=== PATIENT | female | born 1975 | race Caucasian/White ===

== ENCOUNTER 2016-12-18 08:34 | Emergency (ER) | payer BC ==
[2016-12-18 08:44] VITALS: BP 134/83
--- NOTE | 2016-12-18 08:45 | EDM.PDOC ---
ED HPI GENERAL MEDICAL PROBLEM - General Chief Complaint: ENT Problem Stated Complaint: SORETHROAT Time Seen by Provider: 12/18/16 08:43 - History of Present Illness INITIAL COMMENTS - FREE TEXT/NARRATIVE: HISTORY AND PHYSICAL: History of present illness: Patient is a 41-year-old female presented concern of sore throat and requesting strep screening she has been exposed to a person at work with similar illness she denies fever chills nausea vomiting or other complaints Review of systems: As per history of present illness and below otherwise all systems reviewed and negative. Past medical history: As per history of present illness and as reviewed below otherwise noncontributory. Surgical history: As per history of present illness and as reviewed below otherwise noncontributory. Social history: No reported history of drug or alcohol abuse. Family history: As per history of present illness and as reviewed below otherwise noncontributory. Physical exam: HEENT: Atraumatic, normocephalic, pupils reactive, negative for conjunctival pallor or scleral icterus, mucous membranes moist, throat injected no peritonsillar fullness ovular deviation trismus hot potato voice or pustular exudate, neck supple, nontender, trachea midline. Lungs: Clear to auscultation, breath sounds equal bilaterally, chest nontender. Heart: S1S2, regular, negative for clicks, rubs, or JVD. Abdomen: Soft, nondistended, nontender. Negative for masses or hepatosplenomegaly. Negative for costovertebral tenderness. Pelvis: Stable nontender. Genitourinary: Deferred. Rectal: Deferred. Extremities: Atraumatic, negative for cords or calf pain. Neurovascular unremarkable. Neuro: Awake, alert, oriented. Cranial nerves II through XII unremarkable. Cerebellum unremarkable. Motor and sensory unremarkable throughout. Exam nonfocal. Diagnostics: Rapid strep Therapeutics: None Impression: #1 pharyngitis Definitive disposition and diagnosis as appropriate pending reevaluation and review of above. - Related Data Allergies Allergy/AdvReac Type Severity Reaction Status Date / Time Sulfa (Sulfonamide Allergy Airway Verified 12/18/16 08:41 Antibiotics) Tightness Home Meds: Home Meds . [No Known Home Meds] 12/18/16 [History] ED ROS GENERAL - Review of Systems Review Of Systems: ROS reveals no pertinent complaints other than HPI. ED EXAM, GENERAL - Physical Exam Exam: See Below (See dictation) Course - Vital Signs Last Recorded V/S: Last Vital Signs Temp 36.2 C 12/18/16 08:41 Pulse 102 H 12/18/16 08:41 Resp 18 12/18/16 08:41 BP 134/83 12/18/16 08:41 Pulse Ox 97 12/18/16 08:41 - Orders/Labs/Meds Orders: Active Orders 24 hr Category Date Time Status CULTURE STREP A CONFIRMATION [RM] Stat Lab 12/18/16 08:45 Results STREP SCRN A RAPID W CULT CONF [RM] Stat Lab 12/18/16 08:45 Results Departure - Departure Time of Disposition: 09:53 Disposition: Home, Self-Care 01 Condition: good Clinical Impression: Pharyngitis - Discharge Information Forms: ED Department Discharge Additional Instructions: The following information is given to patients seen in the emergency department who are being discharged to home. This information is to outline your options for follow-up care. We provide all patients seen in our emergency department with a follow-up referral. The need for follow-up, as well as the timing and circumstances, are variable depending upon the specifics of your emergency department visit. If you don't have a primary care physician on staff, we will provide you with a referral. We always advise you to contact your personal physician following an emergency department visit to inform them of the circumstance of the visit and for follow-up with them and/or the need for any referrals to a consulting specialist. The emergency department will also refer you to a specialist when appropriate. This referral assures that you have the opportunity for followup care with a specialist. All of these measure are taken in an effort to provide you with optimal care, which includes your followup. Under all circumstances we always encourage you to contact your private physician who remains a resource for coordinating your care. When calling for followup care, please make the office aware that this follow-up is from your recent emergency room visit. If for any reason you are refused follow-up, please contact the [facility] emergency department at and asked to speak to the emergency department charge nurse. Motrin/Tylenol as directed push fluids followup primary medical doctor one to 2 days return as needed as discussed - My Orders Last 24 Hours: My Active Orders 12/18/16 08:45 CULTURE STREP A CONFIRMATION [RM] Stat STREP SCRN A RAPID W CULT CONF [RM] Stat - Assessment/Plan Last 24 Hours: My Active Orders 12/18/16 08:45 CULTURE STREP A CONFIRMATION [RM] Stat STREP SCRN A RAPID W CULT CONF [RM] Stat
== END 2016-12-18 09:59 | disposition home or self-care (01) ==
LOC: MW.ED 08:34
DX: J02.9 Acute pharyngitis, unspecified (principal); Z88.2 Allergy status to sulfonamides
CPT/HCPCS: 87081; 87880; 99282; 99283

== ENCOUNTER 2018-04-09 14:43 | Emergency (ER) | payer SELFPAY ==
[2018-04-09] MEDS ORDERED: Lidocaine 2% Viscous Solution 15 ML Cup PO ONE (15:51)
[2018-04-09] MEDS ORDERED: Benzocaine 20% Topical Spray UD MUCMEM ONE (15:51)
--- NOTE | 2018-04-09 15:53 | EDM.PDOC ---
ED HPI GENERAL MEDICAL PROBLEM - General Chief Complaint: ENT Problem Stated Complaint: TOOTHACHE Time Seen by Provider: 04/09/18 14:52 Source of Information: Reports: Patient History Limitations: Reports: No Limitations - History of Present Illness INITIAL COMMENTS - FREE TEXT/NARRATIVE: HISTORY AND PHYSICAL: History of present illness: Patient is a 43-year-old female who presents to the emergency room today with complaints of left upper dental pain and swelling. She states in December of this year she had broken a tooth while eating [employer] toffee. Since that time she has had to be careful while chewing. She states over the past week she has noticed increased swelling and pain to the broken tooth. She denies any fever, chills, chest pain, shortness of breath or cough. Denies any GI or symptoms. Denies any headache, change in vision ear or throat pain. Review of systems: As per history of present illness and below otherwise all systems reviewed and negative. Past medical history: As per history of present illness and as reviewed below otherwise noncontributory. Surgical history: As per history of present illness and as reviewed below otherwise noncontributory. Social history: No reported history of drug or alcohol abuse. Family history: As per history of present illness and as reviewed below otherwise noncontributory. Physical exam: General: Well-developed and well-nourished 43-year-old female. Alert and oriented. Nontoxic appearing and in no acute distress. HEENT: Atraumatic, normocephalic, pupils equal and reactive bilaterally, negative for conjunctival pallor or scleral icterus, mucous membranes moist, tooth #13-14 appears decayed with a partial chip to the #14 tooth, no exposed nerve root. Erythema to gumline above stated teeth. Her throat clear, neck supple, nontender, trachea midline. No drooling or trismus noted. No meningeal signs Lungs: Clear to auscultation, breath sounds equal bilaterally, chest nontender. Heart: S1S2, regular rate and rhythm without overt murmur Abdomen: Soft, nondistended, nontender. Negative for masses or hepatosplenomegaly. Negative for costovertebral tenderness. Pelvis: Stable nontender. Genitourinary: Deferred. Rectal: Deferred. Skin: Intact, warm, dry. No lesions or rashes noted. Extremities: Atraumatic, negative for cords or calf pain. Neurovascular unremarkable. Neuro: Awake, alert, oriented. Cranial nerves II through XII unremarkable. Cerebellum unremarkable. Motor and sensory unremarkable throughout. Exam nonfocal. Notes: Discussed with patient that she does need to follow up with the dentist for definitive care. We discussed in great length the medications that are any be prescribed and how to take them.She voices understanding and is agreeable to plan of care. She denies any further questions or concerns at this time. Diagnostics: None Therapeutics: Dental Balls Prescription: Pen VK Diclofenac Tramadol (#10) Impression: Dental Abscess Broken Tooth Plan: 1. Please take the antibiotic as prescribed. 2. Tylenol and/or ibuprofen as needed for pain management. "Tooth Balls" have been given to you; you may apply one pouch along the gumline every 2-3 hours as needed. Please do not swallow these; external use only. 3. Follow-up with a dentist for definitive care. Return to the ED as needed and as discussed. Definitive disposition and diagnosis as appropriate pending reevaluation and review of above. Tooth/Teeth Pain Score (Numeric/FACES): 8 - Related Data Allergies Allergy/AdvReac Type Severity Reaction Status Date / Time Sulfa (Sulfonamide Allergy Airway Verified 04/09/18 15:51 Antibiotics) Tightness Home Meds: Home Meds Diclofenac Sodium [Voltaren] 50 mg PO BID PRN #20 tab.ec 04/09/18 [Rx] Penicillin V Potassium 500 mg PO BID 10 Days #20 tab 04/09/18 [Rx] traMADol [Ultram] 50 mg PO Q6H PRN #10 tablet 04/09/18 [Rx] Past Medical History HEENT History: Reports: None Cardiovascular History: Reports: None Respiratory History: Reports: None Gastrointestinal History: Reports: None Genitourinary History: Reports: None Musculoskeletal History: Reports: None Neurological History: Reports: None Psychiatric History: Reports: None Endocrine/Metabolic History: Reports: None Hematologic History: Reports: None Immunologic History: Reports: None Oncologic (Cancer) History: Reports: None Dermatologic History: Reports: None - Past Surgical History Head Surgeries/Procedures: Reports: None Social & Family History - Family History Family Medical History: Noncontributory - Caffeine Use Caffeine Use: Reports: Coffee ED ROS ENT - Review of Systems Review Of Systems: ROS reveals no pertinent complaints other than HPI. ED EXAM, ENT - Physical Exam Exam: See Below (See dictation) Course - Vital Signs Last Recorded V/S: Last Vital Signs Temp 97.2 F 04/09/18 15:51 Pulse 81 04/09/18 16:25 Resp 18 04/09/18 16:25 BP 141/87 H 04/09/18 16:25 Pulse Ox 98 04/09/18 16:25 - Orders/Labs/Meds Meds: Medications Discontinued Medications Generic Name Dose Route Start Last Admin Trade Name Freq PRN Reason Stop Dose Admin Benzocaine 2 each 04/09/18 15:51 04/09/18 16:13 Hurricaine One 20% MUCMEM 04/09/18 15:52 2 each ONETIME ONE Administration Lidocaine HCl 15 ml 04/09/18 15:51 04/09/18 16:13 Xylocaine 2% Viscous PO 04/09/18 15:52 15 ml ONETIME ONE Administration Departure - Departure Time of Disposition: 16:03 Disposition: Home, Self-Care 01 Clinical Impression: Dental abscess Broken tooth Qualifiers: Encounter type: initial encounter Fracture type: closed Qualified Code(s): S02.5XXA - Fracture of tooth (traumatic), initial encounter for closed fracture - Discharge Information Prescriptions: Diclofenac Sodium [Voltaren] 50 mg PO BID PRN #20 tab.ec PRN Reason: Pain Penicillin V Potassium 500 mg PO BID 10 Days #20 tab traMADol [Ultram] 50 mg PO Q6H PRN #10 tablet PRN Reason: Pain Instructions: Dental Abscess, [id number] Referrals: PCP,Unknown [Primary Care Provider] - Forms: ED Department Discharge Additional Instructions: The following information is given to patients seen in the emergency department who are being discharged to home. This information is to outline your options for follow-up care. We provide all patients seen in our emergency department with a follow-up referral. The need for follow-up, as well as the timing and circumstances, are variable depending upon the specifics of your emergency department visit. If you don't have a primary care physician on staff, we will provide you with a referral. We always advise you to contact your personal physician following an emergency department visit to inform them of the circumstance of the visit and for follow-up with them and/or the need for any referrals to a consulting specialist. The emergency department will also refer you to a specialist when appropriate. This referral assures that you have the opportunity for follow-up care with a specialist. All of these measure are taken in an effort to provide you with optimal care, which includes your follow-up. Under all circumstances we always encourage you to contact your private physician who remains a resource for coordinating your care. When calling for follow-up care, please make the office aware that this follow-up is from your recent emergency room visit. If for any reason you are refused follow-up, please contact the [facility] Emergency Department at and asked to speak to the emergency department charge nurse. [facility] [address] [place] [id number] 1. Please take the antibiotic as prescribed. 2. Tylenol and/or ibuprofen as needed for pain management. "Tooth Balls" have been given to you; you may apply one pouch along the gumline every 2-3 hours as needed. Please do not swallow these; external use only. Tramdol for moderate to severe pain. Will cause drowsiness so do not take while driving. 3. Follow-up with a dentist for definitive care. Return to the ED as needed and as discussed.
[2018-04-09 17:51] VITALS: BP 141/87
== END 2018-04-09 16:25 | disposition home or self-care (01) ==
LOC: MW.ED 14:43
DX: K04.7 Periapical abscess without sinus (principal); K03.81 Cracked tooth; Z88.2 Allergy status to sulfonamides; Z79.899 Other long term (current) drug therapy
CPT/HCPCS: 99282; A9270

== ENCOUNTER 2019-06-18 10:20 | Emergency (ER) | payer SELFPAY ==
--- NOTE | 2019-06-18 10:38 | EDM.PDOC ---
ED HPI GENERAL MEDICAL PROBLEM - General Chief Complaint: Lower Extremity Injury/Pain Stated Complaint: RT LEG PAIN Time Seen by Provider: 06/18/19 10:21 - History of Present Illness INITIAL COMMENTS - FREE TEXT/NARRATIVE: HISTORY AND PHYSICAL: History of present illness: Patient 44-year-old female presents status post injury to her right lower extremity she twisted her knee and states she also felt like she strained her Achilles tendon she has pain in both at this time there is no other trauma or concern reported Review of systems: As per history of present illness and below otherwise all systems reviewed and negative. Past medical history: As per history of present illness and as reviewed below otherwise noncontributory. Surgical history: As per history of present illness and as reviewed below otherwise noncontributory. Social history: No reported history of drug or alcohol abuse. Family history: As per history of present illness and as reviewed below otherwise noncontributory. Physical exam: HEENT: Atraumatic, normocephalic, pupils reactive, negative for conjunctival pallor or scleral icterus, mucous membranes moist, throat clear, neck supple, nontender, trachea midline. Lungs: Clear to auscultation, breath sounds equal bilaterally, chest nontender. Heart: S1S2, regular, negative for clicks, rubs, or JVD. Abdomen: Soft, nondistended, nontender. Negative for masses or hepatosplenomegaly. Negative for costovertebral tenderness. Pelvis: Stable nontender. Genitourinary: Deferred. Rectal: Deferred. Extremities: Right ankle has an Achilles tendon is intact there is no evidence of disruption partial or otherwise right knee has some mild tenderness over the medial and lateral collateral ligament joint is grossly stable with no significant effusion CMS and neurovascular exam are unremarkable Neuro: Awake, alert, oriented. Cranial nerves II through XII unremarkable. Cerebellum unremarkable. Motor and sensory unremarkable throughout. Exam nonfocal. Diagnostics: X-ray right knee Therapeutics: Knee immobilizer/crutches Impression: #1 right knee injury #2 Achilles tendon strain Definitive disposition and diagnosis as appropriate pending reevaluation and review of above. right leg and knee Pain Score (Numeric/FACES): 10 - Related Data Allergies Allergy/AdvReac Type Severity Reaction Status Date / Time Penicillins Allergy Airway Verified 06/18/19 10:30 Tightness Sulfa (Sulfonamide Allergy Airway Verified 04/09/18 15:51 Antibiotics) Tightness Home Meds: Home Meds . [No Known Home Meds] 06/18/19 [History] Past Medical History HEENT History: Reports: None Other HEENT History: broken tooth Cardiovascular History: Reports: None Respiratory History: Reports: None Gastrointestinal History: Reports: None Genitourinary History: Reports: None [employer] History: Reports: Ectopic , Musculoskeletal History: Reports: None Neurological History: Reports: None Psychiatric History: Reports: None Endocrine/Metabolic History: Reports: None Hematologic History: Reports: None Immunologic History: Reports: None Oncologic (Cancer) History: Reports: None Dermatologic History: Reports: None - Infectious Disease History Infectious Disease History: Reports: Chicken Pox - Past Surgical History Head Surgeries/Procedures: Reports: None Social & Family History - Family History Family Medical History: Noncontributory - Tobacco Use Smoking Status *Q: Current Every Day Smoker Years of Tobacco use: 20 Packs/Tins Daily: 0.5 - Caffeine Use Caffeine Use: Reports: Coffee - Recreational Drug Use Recreational Drug Use: No Review of Systems - Review of Systems Review Of Systems: Comprehensive ROS is negative, except as noted in HPI. ED EXAM, GENERAL - Physical Exam Exam: See Below (See dictation) Course - Vital Signs Last Recorded V/S: Last Vital Signs Temp 36.1 C 06/18/19 10:31 Pulse 74 06/18/19 10:31 Resp 18 06/18/19 10:31 BP 137/87 06/18/19 10:31 Pulse Ox 98 06/18/19 10:31 - Orders/Labs/Meds Orders: Active Orders 24 hr Category Date Time Status Knee 3V Rt [CR] Stat Exams 06/18/19 10:29 Ordered Departure - Departure Time of Disposition: 10:37 Disposition: Home, Self-Care 01 Condition: Good Clinical Impression: Knee injury, Strain of Achilles tendon - Discharge Information Referrals: Deuce Henriquez MD [Primary Care Provider] - Additional Instructions: The following information is given to patients seen in the emergency department who are being discharged to home. This information is to outline your options for follow-up care. We provide all patients seen in our emergency department with a follow-up referral. The need for follow-up, as well as the timing and circumstances, are variable depending upon the specifics of your emergency department visit. If you don't have a primary care physician on staff, we will provide you with a referral. We always advise you to contact your personal physician following an emergency department visit to inform them of the circumstance of the visit and for follow-up with them and/or the need for any referrals to a consulting specialist. The emergency department will also refer you to a specialist when appropriate. This referral assures that you have the opportunity for followup care with a specialist. All of these measure are taken in an effort to provide you with optimal care, which includes your followup. Under all circumstances we always encourage you to contact your private physician who remains a resource for coordinating your care. When calling for followup care, please make the office aware that this follow-up is from your recent emergency room visit. If for any reason you are refused follow-up, please contact the [facility] emergency department at and asked to speak to the emergency department charge nurse. [facility] - [facility] Professional [address], [address] [place] [address] Diclofenac as prescribed follow-up orthopedic clinic as discussed call for scheduled appointment above knee immobilizer crutches as directed - My Orders Last 24 Hours: My Active Orders 06/18/19 10:29 Knee 3V Rt [CR] Stat - Assessment/Plan Last 24 Hours: My Active Orders 06/18/19 10:29 Knee 3V Rt [CR] Stat
--- NOTE | 2019-06-18 11:41 | CR ---
INDICATION: Right knee pain after fall yesterday. TECHNIQUE: Three views right knee. FINDINGS: Mild soft tissue swelling right knee. Increased density in the subcutaneous tissues of the right knee anteriorly could be related to soft tissue trauma. Small right knee effusion. Very minimal narrowing of the medial compartment of the right knee. Linear lucency coursing through the right proximal tibia on the frontal view only is not seen on the lateral view. This could be related to a vascular marking or artifactual but if there is pain in this region or suspicion for fracture is high a repeat film could be performed or CT could be performed Dictated by Torey Sierra MD @ Jun 18 2019 11:35AM Signed by Dr. Torey Sierra @ Jun 18 2019 11:40AM
[2019-06-18 11:47] VITALS: BP 122/83; PULSE 75
== END 2019-06-18 11:43 | disposition home or self-care (01) ==
LOC: MW.ED 10:20
DX: S86.011A Strain of right Achilles tendon, initial encounter (principal); F17.210 Nicotine dependence, cigarettes, uncomplicated; Z88.0 Allergy status to penicillin; Z88.2 Allergy status to sulfonamides; X50.1XXA Overexertion from prolonged static or awkward postures, initial encounter
CPT/HCPCS: 73562-26-RT; 73562-RT; 99283; 99283-25

== ENCOUNTER 2021-11-09 12:08 | Emergency (ER) | payer SELFPAY ==
[2021-11-09] MEDS ORDERED: Ondansetron 4 MG/2 ML SDV IVPUSH ONE (12:43)
[2021-11-09] MEDS ORDERED: Morphine 4 MG/ML VIAL IVPUSH ONE ×2 (12:43→14:32)
[2021-11-09] MEDS ORDERED: Clindamycin Phosphate in D5W 600 MG in Premix Bag 1 BAG IV ONE ×2 (12:50)
[2021-11-09 13:15] LABS: BLOOD UREA NITROGEN,BUN 10 mg/dL (7.0-18.0); CARBON DIOXIDE,CO2 27.6 mmol/L (21.0-32.0); CHLORIDE,CL 102 mmol/L (98-107); GLUCOSE RANDOM 113 mg/dL (74-106); POTASSIUM,K 4.4 mmol/L (3.5-5.1); SODIUM,NA 137 mmol/L (136-145)
[2021-11-09 15:22] VITALS: BP 136/85; PULSE 75
== END 2021-11-09 14:00 | disposition home or self-care (01) ==
LOC: MW.ED 12:08
DX: L03.313 Cellulitis of chest wall (principal); N61.1 Abscess of the breast and nipple; Z88.0 Allergy status to penicillin; Z88.2 Allergy status to sulfonamides
CPT/HCPCS: 36415; 76642; 80053; 85025; 96365; 96375; 96376; 99284; J2270; J2405; J3490

== ENCOUNTER 2024-12-27 06:43 | Emergency (ER) | payer BC ==
[2024-12-27] MEDS ORDERED: Sodium Chloride 0.9% 10 ML Syringe FLUSH PRN (07:04)
[2024-12-27] MEDS ORDERED: Sodium Chloride 0.9% 2.5 ML Syringe FLUSH PRN (07:04)
[2024-12-27] MEDS ORDERED: Sodium Chloride 0.9% 20 ML SDV IV PRN (07:04)
[2024-12-27 07:17] LABS: BASOPHILS ABSOLUTE AUTO 0.04 K/uL (0.00-0.20); BASOPHILS PERCENT AUTO 0.5 % (0.0-1.0); EOSINOPHILS ABSOLUTE AUTO 0.16 K/uL (0.00-0.45); EOSINOPHILS PERCENT AUTO 2.2 % (0.0-6.0); HEMATOCRIT 51.7 % (37.0-47.0); HEMOGLOBIN 17.8 g/dL (12.0-16.0); IMMATURE GRAN ABSOLUTE AUTO 0.01 K/uL (0.00-0.05); IMMATURE GRAN PERCENT AUTO 0.1 % (0.0-0.4); LYMPHOCYTES ABSOLUTE AUTO 2.88 K/uL (1.00-4.80); LYMPHOCYTES PERCENT AUTO 38.8 % (24.0-44.0); MEAN CORPUSCULAR HEMOGLOBIN 33.4 pg (28.0-32.0); MEAN CORPUSCULAR HGB CONC 34.4 g/dL (32.0-36.0); MEAN PLATELET VOLUME 8.8 fL (9.4-12.3); MONOCYTES ABSOLUTE AUTO 0.48 K/uL (0.00-0.80); MONOCYTES PERCENT AUTO 6.5 % (0.0-8.0); NEUTROPHILS ABSOLUTE AUTO 3.85 K/uL (1.80-7.70); NEUTROPHILS PERCENT AUTO 51.9 % (41.0-71.0); PLATELET COUNT,PLT 250 K/uL (150-400); RED BLOOD CELL COUNT 5.33 M/uL (4.10-5.30); WHITE BLOOD CELL COUNT,WBC 7.42 K/uL (3.9-11.3)
[2024-12-27 07:36] LABS: A/G RATIO 0.9 (0.9-1.6); ALBUMIN 3.3 g/dL (3.4-5.0); BILIRUBIN TOTAL 0.9 mg/dL (0.2-1.0); CALCIUM 9.4 mg/dL (8.5-10.1); CARBON DIOXIDE,CO2 30.2 mmol/L (21.0-32.0); EST CRCL DRUG DOSING (CG) 57.53 mL/min; MAGNESIUM 2.1 mg/dL (1.8-2.4); PROTEIN TOTAL,TP 6.9 g/dL (6.4-8.2)
[2024-12-27] MEDS: Sodium Chloride 0.9% 1,000 ML IV ONE (07:44)
[2024-12-27] MEDS ORDERED: Naloxone 0.4 MG/ML SDV IVPUSH PRN (07:52)
[2024-12-27] MEDS: Ondansetron 4 MG/2 ML SDV IVPUSH ONE (07:57)
[2024-12-27] MEDS: Morphine 4 MG/ML Syringe IVPUSH ONE ×2 (07:57→13:08)
[2024-12-27 10:19] LABS: INR 0.96 (0.86-1.11); PTT,PARTIAL THROMBOPLSTIN TIME 25.4 SEC (23.9-30.7)
[2024-12-27 13:53] VITALS: BP 166/106; PULSE 74
== END 2024-12-27 15:27 ==
LOC: MW.ED 06:43
DX: K80.50 Calculus of bile duct without cholangitis or cholecystitis without obstruction (principal); R74.01 Elevation of levels of liver transaminase levels; Z88.0 Allergy status to penicillin; Z88.2 Allergy status to sulfonamides; Z79.899 Other long term (current) drug therapy
CPT/HCPCS: 36415; 71046; 71046-26; 74181; 74181-26; 76705; 76705-26; 80053; 83690; 83735; 84484; 84703; 85025; 85610; 85730; 93010; 96361; 96374; 96375; 96376; 99284; 99285-25; J2270; J2405; J7030

== ENCOUNTER 2025-01-01 07:51 | Emergency (ER) | payer BC ==
[2025-01-01] MEDS: Sodium Chloride 0.9% 1,000 ML IV ONE ×2 (08:14→09:45)
[2025-01-01] MEDS: Ondansetron 4 MG/2 ML SDV IVPUSH ONE (08:16)
[2025-01-01] MEDS: Morphine 4 MG/ML Syringe IVPUSH ONE ×3 (08:16→11:25)
[2025-01-01 08:41] LABS: HEMATOCRIT 48.1 % (37.0-47.0); HEMOGLOBIN 17.3 g/dL (12.0-16.0); MEAN CORPUSCULAR HEMOGLOBIN 33.3 pg (28.0-32.0); MEAN CORPUSCULAR VOLUME 92.5 fL (83.0-99.0); PLATELET COUNT,PLT 161 K/uL (150-400); WHITE BLOOD CELL COUNT,WBC 11.49 K/uL (3.9-11.3)
[2025-01-01 08:55] LABS: A/G RATIO 0.5 (0.9-1.6); ALBUMIN 2.2 g/dL (3.4-5.0); BILIRUBIN TOTAL 0.7 mg/dL (0.2-1.0); CALCIUM 9.7 mg/dL (8.5-10.1); CARBON DIOXIDE,CO2 28.7 mmol/L (21.0-32.0); CREATININE 2.1 mg/dL (0.6-1.0); EST CRCL DRUG DOSING (CG) 27.4 mL/min; MAGNESIUM 2.9 mg/dL (1.8-2.4); POTASSIUM,K 3.5 mmol/L (3.5-5.1); PROTEIN TOTAL,TP 6.8 g/dL (6.4-8.2)
[2025-01-01 09:14] LABS: LACTIC ACID 2.3 mmol/L (0.4-2.0)
[2025-01-01 09:21] LABS: BILIRUBIN,URINE NEGATIVE (NEGATIVE); COLOR,URINE YELLOW; GLUCOSE,URINE NEGATIVE (NEGATIVE); KETONES,URINE 15 mg/dL (NEGATIVE); LEUKOCYTE ESTERASE,URINE NEGATIVE (NEGATIVE); NITRITE,URINE NEGATIVE (NEGATIVE); OCCULT BLOOD,URINE TRACE-INTACT (NEGATIVE); PROTEIN,URINE 30 mg/dL (NEGATIVE)
[2025-01-01 09:24] LABS: APPEARANCE,URINE HAZY
[2025-01-01 09:30] LABS: BAND ABSOLUTE MAN 0.92; BAND PERCENT MAN 8 %; LYMPHOCYTES ABSOLUTE MAN 1.03 K/uL (1.00-4.80); LYMPHOCYTES PERCENT MAN 9 % (24-44); MONOCYTES ABSOLUTE MAN 0.69 K/uL (0.00-0.80); MONOCYTES PERCENT MAN 6 % (0-8); SEG NEUTROPHILS ABSOLUTE MAN 8.85 K/uL (1.80-7.70); SEG NEUTROPHILS PERCENT MAN 77 % (41-71)
[2025-01-01 09:38] LABS: BACTERIA,URINE NOT SEEN (NEGATIVE); EPITHELIAL CELLS,URINE RARE (NONE-FEW); HYALINE CASTS,URINE 0-2 (0-2/LPF); RBC,URINE 0-2 (0-2/HPF)
[2025-01-01 09:39] LABS: WBC CASTS,URINE 0-2 (NEGATIVE)
[2025-01-01] MEDS: Iopamidol 755 Mg/ML 100 ML Bottle IVPUSH ONE (10:17)
[2025-01-01] MEDS: Levofloxacin/Dextrose 5%-Water 750 MG in Premix Bag 1 BAG IV ONE (10:34)
[2025-01-01] MEDS: HYDROmorphone 0.5 MG/0.5 ML Syringe IVPUSH ONE (11:27)
[2025-01-01 11:30] VITALS: BP 165/82; PULSE 112
== END 2025-01-01 11:37 ==
LOC: MW.ED 07:51
DX: K91.89 Other postprocedural complications and disorders of digestive system (principal); N17.9 Acute kidney failure, unspecified; Z75.3 Unavailability and inaccessibility of health-care facilities; Z90.49 Acquired absence of other specified parts of digestive tract; Z88.2 Allergy status to sulfonamides; Z88.0 Allergy status to penicillin
CPT/HCPCS: 36415; 74177; 80053; 81001; 83605; 83690; 83735; 85025; 96361; 96365; 96375; 96376; 99285; J1956; J2270; J2405; J7030; Q9967; 99284

== ENCOUNTER 2025-01-14 12:01 | Emergency (ER) | payer BC ==
[2025-01-14 13:29] LABS: BASOPHILS ABSOLUTE AUTO 0.07 K/uL (0.00-0.20); BASOPHILS PERCENT AUTO 0.7 % (0.0-1.0); EOSINOPHILS ABSOLUTE AUTO 0.09 K/uL (0.00-0.45); HEMATOCRIT 33.6 % (37.0-47.0); HEMOGLOBIN 11.3 g/dL (12.0-16.0); IMMATURE GRAN ABSOLUTE AUTO 0.07 K/uL (0.00-0.05); IMMATURE GRAN PERCENT AUTO 0.7 % (0.0-0.4); LYMPHOCYTES ABSOLUTE AUTO 1.85 K/uL (1.00-4.80); LYMPHOCYTES PERCENT AUTO 19.5 % (24.0-44.0); MEAN CORPUSCULAR HEMOGLOBIN 32.4 pg (28.0-32.0); MEAN CORPUSCULAR HGB CONC 33.6 g/dL (32.0-36.0); MEAN CORPUSCULAR VOLUME 96.3 fL (83.0-99.0); MEAN PLATELET VOLUME 8.5 fL (9.4-12.3); MONOCYTES ABSOLUTE AUTO 0.74 K/uL (0.00-0.80); MONOCYTES PERCENT AUTO 7.8 % (0.0-8.0); NEUTROPHILS ABSOLUTE AUTO 6.65 K/uL (1.80-7.70); NEUTROPHILS PERCENT AUTO 70.3 % (41.0-71.0); PLATELET COUNT,PLT 501 K/uL (150-400); RED BLOOD CELL COUNT 3.49 M/uL (4.10-5.30); WHITE BLOOD CELL COUNT,WBC 9.47 K/uL (3.9-11.3)
[2025-01-14 13:42] LABS: INR 1.05 (0.86-1.11); PTT,PARTIAL THROMBOPLSTIN TIME 27.6 SEC (23.9-30.7)
[2025-01-14 14:01] LABS: A/G RATIO 0.3 (0.9-1.6); ALANINE AMINOTRANSFERASE,ALT 20 IU/L (14-63); ALBUMIN 1.6 g/dL (3.4-5.0); ALKALINE PHOSPHATASE 119 U/L (46-116); ASPARTATE AMNIOTRANSFERASE,AST 28 IU/L (15-37); BILIRUBIN TOTAL 0.3 mg/dL (0.2-1.0); BLOOD UREA NITROGEN,BUN 13 mg/dL (7.0-18.0); C-REACTIVE PROTEIN 16.96 mg/dL (<0.3); CALCIUM 8.6 mg/dL (8.5-10.1); CARBON DIOXIDE,CO2 30.2 mmol/L (21.0-32.0); CHLORIDE,CL 104 mmol/L (98-107); CREATININE 0.9 mg/dL (0.6-1.0); GLUCOSE RANDOM 130 mg/dL (74-106); LIPASE 87 U/L (16-77); POTASSIUM,K 3.4 mmol/L (3.5-5.1); PROTEIN TOTAL,TP 7.2 g/dL (6.4-8.2); SODIUM,NA 139 mmol/L (136-145)
[2025-01-14 14:02] LABS: ESTIMATED GFR 79 mL/min (>60); HCG QUANTITATIVE < 1.0 mIU/mL
[2025-01-14 14:11] LABS: LACTIC ACID 1.1 mmol/L (0.4-2.0)
[2025-01-14] MEDS: Ondansetron 4 MG/2 ML SDV IVPUSH ONE (15:24)
[2025-01-14] MEDS: Morphine 4 MG/ML Syringe IVPUSH ONE (15:24)
[2025-01-14] MEDS: Sodium Chloride 0.9% 1,000 ML IV STA (15:25)
[2025-01-14] MEDS: Iopamidol 755 Mg/ML 100 ML Bottle IVPUSH STA (15:48)
[2025-01-14] MEDS: HYDROmorphone 0.5 MG/0.5 ML Syringe IVPUSH ONE ×2 (16:41→17:54)
[2025-01-14] MEDS ORDERED: Ciprofloxacin in D5W 400 MG in Premix Bag 1 BAG IV SCH (17:45)
[2025-01-14] MEDS: metroNIDAZOLE/Normal Saline 500 MG in Premix Bag 1 BAG IV ONE (17:54)
[2025-01-14] MEDS: Ciprofloxacin in D5W 400 MG in Premix Bag 1 BAG IV SCH (17:55)
[2025-01-14 18:15] VITALS: BP 132/77; PULSE 77
== END 2025-01-14 21:26 ==
LOC: MW.ED 12:01
DX: K65.9 Peritonitis, unspecified (principal); Z88.0 Allergy status to penicillin; Z88.2 Allergy status to sulfonamides; Z79.899 Other long term (current) drug therapy; Z90.49 Acquired absence of other specified parts of digestive tract
CPT/HCPCS: 36415; 74177; 80053; 83605; 83690; 83735; 84484; 84702; 85025; 85610; 85730; 86140; 87040; 96361; 96365; 96368; 96375; 96376; 99285; J0744; J1836; J2270; J2405; J7030; Q9967; 99284; J1171

== ENCOUNTER 2025-04-11 21:47 | Emergency (ER) | payer BC ==
[2025-04-11 21:58] VITALS: BP 149/78; PULSE 98
== END 2025-04-11 22:40 | disposition home or self-care (01) ==
LOC: MW.ED 21:47
DX: T82.898A Other specified complication of vascular prosthetic devices, implants and grafts, initial encounter (principal); Z88.0 Allergy status to penicillin; Z88.2 Allergy status to sulfonamides; Z79.899 Other long term (current) drug therapy; Z90.49 Acquired absence of other specified parts of digestive tract
CPT/HCPCS: 99283